=== PATIENT | female | born 1965 | race Hispanic/Latino ===

== ENCOUNTER 2021-04-23 17:35 | Emergency (ER) | payer OTHER ==
[~2021-04-23] VITALS: Ht 160 cm; Wt 83.9 kg
[2021-04-23 17:40] VITALS: BP 130/77
[2021-04-23 17:58] LABS: BASOPHILS % (AUTO) 0.6 % (0.0-5.0); EOSINOPHILS % (AUTO) 4.3 % (0.0-8.0); LYMPHOCYTES % (AUTO) 38.7 % (21.0-51.0); MEAN CORPUSCULAR HEMOGLOBIN 29.6 pg (27.0-33.0); MEAN CORPUSCULAR HGB CONC 33.3 g/dL (32.0-36.0); MEAN CORPUSCULAR VOLUME 88.7 fL (79-99); MONOCYTES % (AUTO) 9.3 % (3.0-13.0); NEUTROPHILS % (AUTO) 46.9 % (40.0-77.0); PLATELET COUNT (AUTO) 319 K/uL (130-400); RED BLOOD CELL COUNT(AUTO) 4.06 MIL/uL (4.00-5.50); RED CELL DISTRIBUTION WIDTH 13.1 % (11.0-15.5); WHITE BLOOD COUNT (AUTO) 6.3 K/uL (4.8-10.8)
[2021-04-23 18:16] LABS: ALBUMIN 3.7 g/dL (3.5-5.0); BILIRUBIN,TOTAL 0.3 mg/dL (0.2-1.0); CREATININE 0.6 mg/dL (0.5-1.5); POTASSIUM 3.5 mmol/L (3.5-5.1); TOTAL PROTEIN, SERUM 7.9 g/dL (6.0-8.3)
[2021-04-23 18:45] VITALS: BP 119/71
[2021-04-23] MEDS ORDERED: METH4TAB3 PO (18:57)
[2021-04-23] MEDS ORDERED: PREDNISONE 20 MG TABLET PO SCH (19:45)
== END 2021-04-23 20:14 | disposition home or self-care (01) ==
LOC: EDH 17:35
DX: M94.0 Chondrocostal junction syndrome [Tietze] (principal); J45.909 Unspecified asthma, uncomplicated
CPT/HCPCS: 36415; 71045; 80053; 84484; 85025; 93005

== ENCOUNTER 2022-06-20 05:34 | Observation (INO) | payer OTHER ==
[2022-06-19 14:44] LABS: BASOPHILS % (AUTO) 1.3 % (0.0-5.0); EOSINOPHILS % (AUTO) 4.5 % (0.0-8.0); HEMATOCRIT 38.5 % (36-48); LYMPHOCYTES % (AUTO) 43.8 % (21.0-51.0); MEAN CORPUSCULAR HEMOGLOBIN 29.9 pg (27.0-33.0); MEAN CORPUSCULAR HGB CONC 33.2 g/dL (32.0-36.0); MONOCYTES % (AUTO) 7.4 % (3.0-13.0); NEUTROPHILS % (AUTO) 42.9 % (40.0-77.0); PLATELET COUNT (AUTO) 375 K/uL (130-400); RED BLOOD CELL COUNT(AUTO) 4.28 MIL/uL (4.00-5.50); RED CELL DISTRIBUTION WIDTH 13.4 % (11.0-15.5); WHITE BLOOD COUNT (AUTO) 6.9 K/uL (4.8-10.8)
[2022-06-19 14:45] LABS: APPEARANCE,URINE CLEAR (CLEAR); BILIRUBIN,URINE NEGATIVE (NEGATIVE); COLOR,URINE YELLOW (YELLOW); GLUCOSE, URINE (UA) NEGATIVE (NEGATIVE); KETONES,URINE 5 mg/dL (NEGATIVE); LEUKOCYTE ESTERASE ,URINE NEGATIVE (NEGATIVE); NITRATE,URINE NEGATIVE (NEGATIVE); OCCULT BLOOD,URINE NEGATIVE (NEGATIVE); PH,URINE 5.5 (5.0-8.0); PROTEIN,URINE NEGATIVE (NEGATIVE); UROBILINOGEN,URINE 0.2 mg/dL (0.2-1.0)
[2022-06-19 14:47] LABS: BACTERIA,URINE Rare /HPF (None Seen); RBC,URINE 0-1 /HPF (0-1); SQUAMOUS EPITHELIAL CELL,UR Rare /HPF (0-2); WBC,URINE 0-1 /HPF (0-1)
[2022-06-19 14:55] LABS: INR 0.93 (0.85-1.15); PROTHROMBIN TIME 9.8 SEC (9.6-11.6)
[2022-06-19 14:56] LABS: PARTIAL THROMBOPLASTIN TIME 27.1 SEC (26.3-35.5)
[2022-06-19 16:21] VITALS: BP 126/78
[2022-06-20] VITALS (24 sets, daily range): BP systolic 93–128; BP diastolic 55–82
[~2022-06-20] VITALS: Ht 160 cm; Wt 84.0 kg
[~2022-06-20 05:34] MED LIST: MULT-1290 PO; [UNRECOGNIZED DRUG - OTHER] PO; [UNRECOGNIZED DRUG - OTHER] TP
[2022-06-20] MEDS ORDERED: LACTATED RINGERS 1000ML 1,000 ML IV ONE (05:49)
[2022-06-20] MEDS ORDERED: PROPOFOL 10 MG/ML 20ML VIAL IV ONE (07:18)
[2022-06-20] MEDS ORDERED: MIDAZOLAM HCL 1 MG/ML 2ML VIAL ONE (07:18)
[2022-06-20] MEDS ORDERED: ONDANSETRON 4MG INJ ONE (07:18)
[2022-06-20] MEDS ORDERED: ROCURONIUM 10MG/1ML SYR 10 MG/ML ML ONE (07:19)
[2022-06-20] MEDS ORDERED: FENTANYL CITRATE PF 50 MCG/1 ML 2ML VIAL ONE (07:19)
[2022-06-20] MEDS ORDERED: KETAMINE 50MG/ML SYRINGE 50 MG/ML DISP.SYRIN IV ONE (07:25)
[2022-06-20] MEDS ORDERED: CLINDAMYCIN IVPB 900MG/50ML 50 ML IV ONE (07:26)
[2022-06-20] MEDS ORDERED: LACTATED RINGERS 1000ML 1,000 ML IV SCH (08:00)
[2022-06-20] MEDS ORDERED: DEXAMETHASONE SOD PHOSPHATE 4 MG/ML 1ML VIAL ONE (08:03)
[2022-06-20] MEDS ORDERED: GLYCOPYRROLATE 1 MG/5 ML SYRINGE ONE (08:32)
[2022-06-20] MEDS ORDERED: NEOSTIGMINE 5MG/5ML SYR IV ONE (08:33)
[2022-06-20] MEDS ORDERED: KETOROLAC 30MG VIAL (30MG/ML) ONE (08:34)
[2022-06-20] MEDS ORDERED: MEPERIDINE-PF 25 MG/ML SYG ONE (09:11)
[2022-06-20] MEDS ORDERED: ACETAMINOPHEN WITH CODEINE 1 TAB TAB PO PRN (11:00)
[2022-06-20] MEDS ORDERED: SIMETHICONE 80 MG TAB.CHEW PO PRN (11:00)
[2022-06-20] MEDS ORDERED: DOCUSATE SODIUM 100 MG CAP PO PRN (11:00)
[2022-06-20] MEDS ORDERED: BISACODYL 10 MG SUPP.RECT RC PRN (11:00)
[2022-06-20] MEDS ORDERED: IBUPROFEN 600 MG TABLET PO PRN (11:00)
[2022-06-20] MEDS ORDERED: ONDANSETRON 4MG INJ IVP PRN (11:00)
[2022-06-20] MEDS ORDERED: PROMETHAZINE HCL 25 MG/ML 1ML AMPULE IM PRN (11:00)
[2022-06-20] MEDS: PROMETHAZINE HCL 25 MG/ML 1ML AMPULE IM PRN ×3 (11:38→20:21)
[2022-06-20] MEDS: MEPERIDINE-PF 75 MG/ML SYG IM PRN ×3 (11:38→20:22)
[2022-06-20] MEDS: DEXTROSE 5 %-0.45 % NACL 1,000 ML IV PRN ×2 (13:01→20:22)
[2022-06-21] MEDS: DEXTROSE 5 %-0.45 % NACL 1,000 ML IV PRN (04:15)
[2022-06-21 04:24] VITALS: BP 112/59
[2022-06-21] MEDS ORDERED: HYDROCODONE/ACETAMINOPHEN 5/325 MG TAB PO PRN (05:00)
[2022-06-21] MEDS ORDERED: BISACODYL 10 MG SUPP.RECT RC PRN (05:00)
[2022-06-21] MEDS ORDERED: ACETAMINOPHEN WITH CODEINE 1 TAB TAB PO PRN (05:00)
[2022-06-21 05:13] LABS: HEMATOCRIT 33.9 % (36-48); MEAN CORPUSCULAR HEMOGLOBIN 30.1 pg (27.0-33.0); MEAN CORPUSCULAR HGB CONC 33.3 g/dL (32.0-36.0); MEAN CORPUSCULAR VOLUME 90.4 fL (79-99); RED BLOOD CELL COUNT(AUTO) 3.75 MIL/uL (4.00-5.50); RED CELL DISTRIBUTION WIDTH 13.2 % (11.0-15.5)
[2022-06-21 08:00] VITALS: BP 95/62
[2022-06-21] MEDS: DOCUSATE SODIUM 100 MG CAP PO PRN ×2 (08:45→21:28)
[2022-06-21] MEDS: NITROFURANTOIN MONOHYD/M-CRYST 100 MG CAPSULE PO SCH ×2 (08:45→21:28)
[2022-06-21] MEDS: SIMETHICONE 80 MG TAB.CHEW PO PRN ×4 (08:45→21:27)
[2022-06-21] MEDS: IBUPROFEN 800 MG TAB PO PRN ×3 (08:48→21:28)
[2022-06-21 11:30] VITALS: BP 108/71
[2022-06-21 16:00] VITALS: BP 100/65
[2022-06-21 19:32] VITALS: BP 108/66
[2022-06-21 22:30] VITALS: BP 113/69
[2022-06-22 03:10] VITALS: BP 130/77
[2022-06-22] MEDS: IBUPROFEN 800 MG TAB PO PRN ×2 (04:12→10:42)
[2022-06-22 07:47] VITALS: BP 118/71
[2022-06-22] MEDS: SIMETHICONE 80 MG TAB.CHEW PO PRN (09:14)
[2022-06-22] MEDS: NITROFURANTOIN MONOHYD/M-CRYST 100 MG CAPSULE PO SCH (09:15)
[2022-06-22] MEDS: DOCUSATE SODIUM 100 MG CAP PO PRN (09:15)
[2022-06-22] MEDS ORDERED: ACET-2079 PO (10:31)
[2022-06-22] MEDS ORDERED: MACR100 PO (10:31)
[2022-06-22] MEDS ORDERED: DOCU-116 PO (10:31)
[2022-06-22 11:14] VITALS: BP 98/62
== END 2022-06-22 12:40 | disposition home or self-care (01) ==
LOC: DAH 05:34 → DAHIP 05:35 → DAH 05:35 → WSH 09:50
PROVIDERS: ADMIT Obstetrics & Gynecology; ATTEND Obstetrics & Gynecology
DX: N81.10 Cystocele, unspecified (principal); Z20.822 Contact with and (suspected) exposure to COVID-19; N81.6 Rectocele; Z79.899 Other long term (current) drug therapy; Z98.890 Other specified postprocedural states
CPT/HCPCS: 85025; 85610; 85730; 86850; 86900; 86901; 87426; 81001; 36415 ×2; 57260; 57288; 96372; 88305; 85027; A6260; G0378 ×53; G0379; A4663; A4351; A4606; J7120; J3010; J3490 ×3; J2710; J2550 ×3; J2250; J2704; J2405; J1885; J1100; J2175 ×4; C1771; A4215; A4223; A4222; A4221; A4600; A4510

== ENCOUNTER 2022-12-13 06:38 | Day surgery (SDC) | payer OTHER ==
[2022-12-11 11:19] LABS: BASOPHILS % (AUTO) 1.2 % (0.0-5.0); EOSINOPHILS % (AUTO) 6.3 % (0.0-8.0); LYMPHOCYTES % (AUTO) 42.6 % (21.0-51.0); MEAN CORPUSCULAR HEMOGLOBIN 29.9 pg (27.0-33.0); MEAN CORPUSCULAR HGB CONC 32.9 g/dL (32.0-36.0); MEAN CORPUSCULAR VOLUME 90.7 fL (79-99); MONOCYTES % (AUTO) 6.9 % (3.0-13.0); NEUTROPHILS % (AUTO) 42.8 % (40.0-77.0); PLATELET COUNT (AUTO) 335 K/uL (130-400); RED BLOOD CELL COUNT(AUTO) 4.52 MIL/uL (4.00-5.50); RED CELL DISTRIBUTION WIDTH 13.5 % (11.0-15.5); WHITE BLOOD COUNT (AUTO) 6.6 K/uL (4.8-10.8)
[2022-12-12 10:31] VITALS: BP 106/66
[2022-12-13] VITALS (17 sets, daily range): BP systolic 94–118; BP diastolic 54–85
[~2022-12-13] VITALS: Ht 162.6 cm; Wt 84.3 kg
[~2022-12-13 06:38] MED LIST changes: +GINK120C PO; -MULT-1290 PO; +POTASSIUM PO; +VITA-395 PO; +VITAMIN C PO; -[UNRECOGNIZED DRUG - OTHER] PO; -[UNRECOGNIZED DRUG - OTHER] TP
[2022-12-13] MEDS ORDERED: LACTATED RINGERS 1000ML 1,000 ML IV ONE (07:03)
[2022-12-13 07:14] LABS: CREATININE 0.6 mg/dL (0.5-1.5)
[2022-12-13] MEDS ORDERED: LIDOCAINE PF 100MG/5ML (2%) SYRINGE 5ML ONE (07:38)
[2022-12-13] MEDS ORDERED: MIDAZOLAM HCL 1 MG/ML 2ML VIAL ONE (07:38)
[2022-12-13] MEDS ORDERED: FENTANYL CITRATE PF 50 MCG/1 ML 2ML VIAL ONE ×2 (07:38→09:10)
[2022-12-13] MEDS ORDERED: PROPOFOL 10 MG/ML 20ML VIAL IV ONE (07:38)
[2022-12-13] MEDS ORDERED: INHALER IH (07:43)
[2022-12-13] MEDS ORDERED: ONDANSETRON 4MG INJ ONE ×2 (08:48→10:29)
[2022-12-13] MEDS ORDERED: DEXAMETHASONE SOD PHOSPHATE 4 MG/ML 1ML VIAL ONE (08:48)
[2022-12-13] MEDS ORDERED: KETOROLAC 30MG VIAL (30MG/ML) ONE (09:07)
[2022-12-13] MEDS ORDERED: MEPERIDINE-PF 25 MG/ML SYG ONE (10:30)
== END 2022-12-13 11:30 | disposition home or self-care (01) ==
LOC: DAH 06:38
PROVIDERS: ATTEND Obstetrics & Gynecology
DX: N90.60 Unspecified hypertrophy of vulva (principal); F41.9 Anxiety disorder, unspecified; F32.A Depression, unspecified; Z88.0 Allergy status to penicillin; Z79.899 Other long term (current) drug therapy; Z20.822 Contact with and (suspected) exposure to COVID-19
CPT/HCPCS: 84703; 85025; 87426; 36415 ×2; 56620; 80048; J1100; A4663; A4606; J7120; J3010 ×2; J2001; J2250; J2704; J2405 ×2; J1885; J2175; A4351; A4215; A4223; A4222; A4221